=== PATIENT | male | born 1975 | race African-American/Black ===

== ENCOUNTER 2017-10-21 01:27 | Emergency (ER) | payer OTHER ==
[~2017-10-21] VITALS: Ht 175.3 cm; Wt 95.3 kg
[2017-10-21 01:59] VITALS: BP 155/90
[2017-10-21] MEDS ORDERED: KETOROLAC TROMETH 60MG/2ML VIAL IM ONE (03:15)
[2017-10-21] MEDS ORDERED: methylPREDNISolone SOD SUCC 125 MG/2 ML VL IM ONE (03:15)
== END 2017-10-21 04:02 | disposition home or self-care (01) ==
LOC: ER 01:30
DX: M54.16 Radiculopathy, lumbar region (principal); M51.26 Other intervertebral disc displacement, lumbar region; M25.80 Other specified joint disorders, unspecified joint; M48.061 Spinal stenosis, lumbar region without neurogenic claudication
CPT/HCPCS: 72131; 96372; 99284; J1885; J2930